=== PATIENT | male | born 1965 | race Caucasian/White ===

== ENCOUNTER 2022-09-18 07:55 | Day surgery (SDC) | payer OTHER ==
[~2022-09-18] VITALS: Ht 180.3 cm; Wt 82.0 kg
[~2022-09-18 07:55] MED LIST: LIDOCAINE 2% 100MG/5ML SDV (FOR ANES.) As Ordered ONE; MULT-90 PO; NS 1,000 ML IV ONE; VITA100093 PO; VITA500C24 PO; propofoL 200 MG/20 ML VIAL As Ordered ONE
[2022-09-18 09:50] VITALS: BP 117/79
== END 2022-09-18 10:09 | disposition home or self-care (01) ==
LOC: M OPP 07:55
PROVIDERS: ATTEND Surgery
DX: Z12.11 Encounter for screening for malignant neoplasm of colon (principal); Z86.010 Personal history of colon polyps; D12.3 Benign neoplasm of transverse colon; F17.290 Nicotine dependence, other tobacco product, uncomplicated

== ENCOUNTER 2025-04-01 03:37 | Emergency (ER) | payer BC, OTHER ==
[~2025-04-01] VITALS: Ht 180.3 cm; Wt 80.0 kg
[~2025-04-01 03:37] MED LIST changes: -LIDOCAINE 2% 100MG/5ML SDV (FOR ANES.) As Ordered ONE; -NS 1,000 ML IV ONE; -propofoL 200 MG/20 ML VIAL As Ordered ONE
[2025-04-01 09:00] VITALS: BP 117/78; TEMP 97.9; O2SAT 97
== END 2025-04-01 09:15 | disposition home or self-care (01) ==
LOC: M ED 03:37
DX: K40.20 Bilateral inguinal hernia, without obstruction or gangrene, not specified as recurrent (principal); Z79.899 Other long term (current) drug therapy

== ENCOUNTER 2025-05-17 08:31 | Day surgery (SDC) | payer BC ==
[~2025-05-17] VITALS: Ht 180.3 cm; Wt 78.9 kg
[~2025-05-17 08:31] MED LIST changes: +LR 1,000 ML IV SCH
[2025-05-17] MEDS ORDERED: KETOROLAC 30 MG/ML 1 ML VIAL As Ordered ONE (08:38)
[2025-05-17] MEDS ORDERED: ONDANSETRON 4MG/2ML VIAL As Ordered ONE (08:38)
[2025-05-17] MEDS ORDERED: dexAMETHasone 4 MG/ML 1 ML VIAL As Ordered ONE (08:38)
[2025-05-17] MEDS ORDERED: LIDOCAINE 2% 100 MG/5 ML SDV (FOR ANES.) As Ordered ONE (08:39)
[2025-05-17] MEDS ORDERED: SUGAMMADEX SODIUM 500 MG/5 ML VIAL As Ordered ONE (08:39)
[2025-05-17] MEDS ORDERED: ROCURONIUM BROMIDE 50MG/5ML VIAL As Ordered ONE (08:39)
[2025-05-17] MEDS ORDERED: dexmedeTOMIDine (4 MCG/ML) 200 MCG/50 ML BTL As Ordered ONE (08:40)
[2025-05-17] MEDS ORDERED: MIDAZOLAM INJ 2 MG/2 ML VIAL As Ordered ONE (08:42)
[2025-05-17] MEDS: CelecoXIB 400 MG CAP PO ONE (09:06)
[2025-05-17] MEDS: ceFAZolin SOD 2 GM IV ONCE IV ONE (10:20)
[2025-05-17] MEDS ORDERED: ACETAMINOPHEN 1000MG/100ML IV BAG As Ordered ONE (10:35)
[2025-05-17] MEDS: LIDOCAINE 1% SDV 30 ML VIAL As Ordered ONE (12:00)
[2025-05-17] MEDS ORDERED: HYDROMORPHONE HCL 0.5 MG/0.5 ML SYRINGE IV PRN (12:05)
[2025-05-17] MEDS ORDERED: LR 1,000 ML IV SCH (12:05)
[2025-05-17] MEDS ORDERED: ONDANSETRON 4MG/2ML VIAL IV PRN (12:05)
[2025-05-17 13:19] VITALS: BP 156/90; TEMP 97.1; O2SAT 96
[2025-05-17] MEDS ORDERED: KETOROLAC 30 MG/ML 1 ML VIAL IV SCH (15:00)
== END 2025-05-17 13:35 | disposition home or self-care (01) ==
LOC: M SDC 08:31
PROVIDERS: ATTEND Surgery
DX: K40.90 Unilateral inguinal hernia, without obstruction or gangrene, not specified as recurrent (principal); F17.290 Nicotine dependence, other tobacco product, uncomplicated
CPT/HCPCS: 49650; C1781; J0131; J0665; J0688; J1100; J1885; J2250; J2405; J2765; J3010; S2900